=== PATIENT | female | born 1955 | race Caucasian/White ===

== ENCOUNTER → 2022-03-13 | Day surgery (SDC) | payer BC | END | disposition home or self-care (01) | LOC: FMAMMOTONE 12:28 | PROVIDERS: ATTEND Surgery | PROC: 0HBT3ZX Excision of Right Breast, Percutaneous Approach, Diagnostic (ICD-10-PCS; principal; 2022-03-13) | DX: N60.11 Diffuse cystic mastopathy of right breast (principal); N60.21 Fibroadenosis of right breast; N60.31 Fibrosclerosis of right breast; N64.89 Other specified disorders of breast; R92.1 Mammographic calcification found on diagnostic imaging of breast | CPT/HCPCS: 19081; 76098-TC-FY; 88305-TC ==

== ENCOUNTER 2024-04-12 08:15 | Day surgery (SDC) | payer OTHER ==
[2024-04-11 10:18] VITALS: BMI 25.2
[2024-04-12] MEDS ORDERED: DEXAMETHASONE SOD PHOSPHATE 4 MG/1 ML VIAL ONE (09:38)
[2024-04-12] MEDS ORDERED: PROPOFOL 20 ML ONE (09:38)
[2024-04-12] MEDS ORDERED: ROCURONIUM BROMIDE 50 MG/5 ML SYRINGE ONE ×2 (09:38→14:10)
[2024-04-12] MEDS ORDERED: LIDOCAINE HCL 2% 100 MG/5 ML DISP.SYRIN ONE (09:38)
[2024-04-12] MEDS ORDERED: MIDAZOLAM HCL 2 MG/2 ML SINGLE DOSE VIAL ONE ×2 (09:38→13:07)
[2024-04-12] MEDS ORDERED: SUCCINYLCHOLINE CHLORIDE 200 MG/10 ML SYRINGE ONE ×2 (09:38→13:07)
[2024-04-12] MEDS ORDERED: ceFAZolin SODIUM 1 GM VIAL ONE (09:38)
[2024-04-12] MEDS ORDERED: ONDANSETRON 4 MG/2 ML VIAL ONE ×3 (09:38→20:15)
[2024-04-12] MEDS ORDERED: KETOROLAC TROMETHAMINE 30 MG/1 ML VIAL ONE (09:38)
[2024-04-12] MEDS ORDERED: ePHEDrine SULFATE 50 MG/1 ML AMPULE ONE (09:41)
[2024-04-12] MEDS ORDERED: oxyCODONE HCL 5 MG TABLET PO PRN ×2 (09:51→20:25)
[2024-04-12] MEDS ORDERED: ONDANSETRON 4 MG/2 ML VIAL IVPUSH PRN (09:51)
[2024-04-12] MEDS ORDERED: PROPOFOL 40 ML ONE (13:06)
[2024-04-12] MEDS ORDERED: LIDOCAINE HCL 1%, 10 MG/ML (20ML VIAL) ONE (13:14)
[2024-04-12] MEDS ORDERED: ISOSULFAN BLUE 50 MG/5 ML VIAL SQ ONE (13:14)
[2024-04-12] MEDS: ceFAZolin SODIUM 1 GM VIAL IVPB ONE (14:06)
[2024-04-12] MEDS: LIDOCAINE HCL 1%, 10 MG/ML (20ML VIAL) INF ONE (14:29)
[2024-04-12] MEDS: ONDANSETRON 4 MG/2 ML VIAL IVPUSH ONE (17:36)
[2024-04-12] MEDS ORDERED: ONDANSETRON 4 MG/2 ML VIAL IVPB PRN (19:53)
[2024-04-12] MEDS: PANTOPRAZOLE 20 MG TABLET PO ONE (21:50)
[2024-04-12 23:56] VITALS: RESP 18
[2024-04-13 06:52] VITALS: PULSE 69
[2024-04-13 07:56] VITALS: BP 98/59; TEMP 97.3
[2024-04-13] MEDS: LACTATED RINGERS SOLUTION 1,000 ML IV SCH (10:19)
[2024-04-13] MEDS: ACETAMINOPHEN 325 MG TABLET (FP) PO PRN (10:19)
== END 2024-04-13 13:39 | disposition home or self-care (01) ==
LOC: JASUSAT 08:15 → J6S 21:04 → JASUSAT 04-13 13:39
PROVIDERS: ATTEND Surgery
PROC: 07B80ZX Excision of Right Internal Mammary Lymphatic, Open Approach, Diagnostic (ICD-10-PCS; 2024-04-12)
PROC: 07B90ZX Excision of Left Internal Mammary Lymphatic, Open Approach, Diagnostic (ICD-10-PCS; 2024-04-12)
PROC: C71L1ZZ Planar Nuclear Medicine Imaging of Upper Chest Lymphatics using Technetium 99m (Tc-99m) (ICD-10-PCS; 2024-04-12)
PROC: 07B60ZX Excision of Left Axillary Lymphatic, Open Approach, Diagnostic (ICD-10-PCS; 2024-04-12)
PROC: 0HBV0ZZ Excision of Bilateral Breast, Open Approach (ICD-10-PCS; principal; 2024-04-12 09:00)
PROC: 07B60ZX Excision of Left Axillary Lymphatic, Open Approach, Diagnostic (ICD-10-PCS; 2024-04-12 09:00)
DX: C50.912 Malignant neoplasm of unspecified site of left female breast (principal); C50.911 Malignant neoplasm of unspecified site of right female breast; C77.3 Secondary and unspecified malignant neoplasm of axilla and upper limb lymph nodes
CPT/HCPCS: 19281; 19282; 76098-TC-FY; 78195-TC; 88305-TC; 88307-TC; 88341-TC; 88342-TC; 94760; A9541

== ENCOUNTER 2024-09-06 12:12 | Day surgery (SDC) | payer OTHER ==
[2024-09-06] MEDS: PALONOSETRON HCL 0.25 MG/5 ML VIAL IVPUSH ONE (14:07)
[2024-09-06] MEDS: DEXAMETHASONE SODIUM PHOSPHATE 10 MG in SODIUM CHLORIDE 50 ML IVPB ONE (14:10)
[2024-09-06] MEDS: DOCETAXEL 124 MG in SODIUM CHLORIDE 250 ML IVPB ONE (14:35)
[2024-09-06] MEDS: CYCLOPHOSPHAMIDE INJECTION 1,000 MG in SODIUM CHLORIDE 250 ML IVPB ONE (15:47)
[2024-09-06] MEDS: PORTA CATH FLUSH 10 ML IVPUSH PRN (16:30)
[2024-09-06 18:14] VITALS: RESP 20; TEMP 97.9
[2024-09-06 18:22] VITALS: BP 142/80; PULSE 100
== END 2024-09-06 16:30 | disposition home or self-care (01) ==
LOC: JONCCHEMO 12:12 → J7W 12:16 → JONCCHEMO 16:30
PROVIDERS: ATTEND Internal Medicine Hematology & Oncology
DX: Z51.11 Encounter for antineoplastic chemotherapy (principal); C50.411 Malignant neoplasm of upper-outer quadrant of right female breast; C50.412 Malignant neoplasm of upper-outer quadrant of left female breast; Z17.0 Estrogen receptor positive status [ER+]
CPT/HCPCS: 96375; 96413; 96417; J9074

== ENCOUNTER 2024-09-07 12:49 | Day surgery (SDC) | payer OTHER ==
[2024-09-07] MEDS: PEGFILGRASTIM-CBQV (UDENYCA) 6 MG/0.6 ML SYRINGE SQ ONE (13:16)
[2024-09-07 15:32] VITALS: BP 137/77; PULSE 58; RESP 18; TEMP 98.4
== END 2024-09-07 13:30 | disposition home or self-care (01) ==
LOC: JONCCHEMO 12:49 → J7W 12:49 → JONCCHEMO 13:30
PROVIDERS: ATTEND Internal Medicine Hematology & Oncology
PROC: 3E013GC Introduction of Other Therapeutic Substance into Subcutaneous Tissue, Percutaneous Approach (ICD-10-PCS; principal; 2024-09-07)
DX: C50.411 Malignant neoplasm of upper-outer quadrant of right female breast (principal); C50.412 Malignant neoplasm of upper-outer quadrant of left female breast; Z17.0 Estrogen receptor positive status [ER+]; Z76.89 Persons encountering health services in other specified circumstances
CPT/HCPCS: 96372; Q5111

== ENCOUNTER 2024-09-29 11:00 | Day surgery (SDC) | payer OTHER ==
[2024-09-29 11:25] LABS: HEMATOCRIT 37.6 % (32.4-45.2); HEMOGLOBIN 12.1 GM/dL (10.7-15.3); MCH 26.7 pg (25.7-33.7); MCHC 32.3 g/dl (32.0-36.0); MEAN CELL VOLUME 82.6 fl (80-96); MEAN PLT VOLUME 7.1 fl (7.5-11.1); PLATELET COUNT 383 10^3/uL (134-434); RBC 4.55 M/mm3 (3.60-5.2); RDW 16.8 % (11.6-15.6); WHITE BLOOD COUNT 10.2 K/mm3 (4.0-10.0)
[2024-09-29 12:04] LABS: CHLORIDE 108 mmol/L (98-107); POTASSIUM 4.4 mmol/L (3.5-5.1); SODIUM 139 mmol/L (136-145)
[2024-09-29 12:08] LABS: ALBUMIN 3.4 g/dl (3.4-5.0); ANION GAP 5 mmol/L (4-13); BLOOD UREA NITROGEN 20.9 mg/dL (7-18); CALCIUM 10.2 mg/dL (8.5-10.1); CO2 25 mmol/L (21-32); GLUCOSE,RANDOM 78 mg/dL (74-106)
[2024-09-29 12:10] LABS: BILIRUBIN,DIRECT 0.1 mg/dL (0.0-0.2); CREATININE 0.5 mg/dL (0.55-1.3); SGOT/AST 17 U/L (15-37); SGPT/ALT 16 U/L (13-61)
[2024-09-29 12:12] LABS: ANISOCYTOSIS 0; BILIRUBIN,TOTAL 0.2 mg/dL (0.2-1); MACROCYTOSIS 0; TOT PROT 7.2 g/dl (6.4-8.2)
[2024-09-29 12:13] LABS: ALK PHOS 111 U/L (45-117)
[2024-09-29] MEDS: PALONOSETRON HCL 0.25 MG/5 ML VIAL IVPUSH ONE (12:38)
[2024-09-29] MEDS: DEXAMETHASONE SODIUM PHOSPHATE 10 MG in SODIUM CHLORIDE 50 ML IVPB ONE (12:38)
[2024-09-29] MEDS: DOCETAXEL 124 MG in SODIUM CHLORIDE 250 ML IVPB ONE (13:04)
[2024-09-29] MEDS: CYCLOPHOSPHAMIDE INJECTION 1,000 MG in SODIUM CHLORIDE 250 ML IVPB ONE (14:12)
[2024-09-29] MEDS: PORTA CATH FLUSH 10 ML IVPUSH PRN (14:55)
[2024-09-29 18:18] VITALS: BP 124/67; PULSE 78; RESP 18; TEMP 97.9
== END 2024-09-29 15:10 | disposition home or self-care (01) ==
LOC: JONCCHEMO 11:00 → J7W 11:01 → JONCCHEMO 15:10
PROVIDERS: ATTEND Internal Medicine Hematology & Oncology
DX: Z51.11 Encounter for antineoplastic chemotherapy (principal); C50.411 Malignant neoplasm of upper-outer quadrant of right female breast; C50.412 Malignant neoplasm of upper-outer quadrant of left female breast; Z17.0 Estrogen receptor positive status [ER+]
CPT/HCPCS: 36415; 80048; 80076; 85025; 96367; 96413; 96417; J9074

== ENCOUNTER 2024-09-30 11:47 | Day surgery (SDC) | payer OTHER ==
[2024-09-30] MEDS: PEGFILGRASTIM-CBQV (UDENYCA) 6 MG/0.6 ML SYRINGE SQ ONE (11:46)
[2024-09-30 14:37] VITALS: BP 139/74; PULSE 68; RESP 20; TEMP 97.9
== END 2024-09-30 12:00 | disposition home or self-care (01) ==
LOC: J7W 11:47 → JONCCHEMO 11:47
PROVIDERS: ATTEND Internal Medicine Hematology & Oncology
PROC: 3E013GC Introduction of Other Therapeutic Substance into Subcutaneous Tissue, Percutaneous Approach (ICD-10-PCS; principal; 2024-09-30)
DX: C50.919 Malignant neoplasm of unspecified site of unspecified female breast (principal); Z76.89 Persons encountering health services in other specified circumstances
CPT/HCPCS: 96372; Q5111

== ENCOUNTER 2024-10-20 09:11 | Day surgery (SDC) | payer OTHER ==
[2024-10-20 09:56] LABS: BASO % 0.3 % (0-2.0); HEMATOCRIT 36.9 % (32.4-45.2); HEMOGLOBIN 12.3 GM/dL (10.7-15.3); LYMPH % 4.5 % (8-40); MCH 27.7 pg (25.7-33.7); MCHC 33.4 g/dl (32.0-36.0); MEAN CELL VOLUME 82.9 fl (80-96); MEAN PLT VOLUME 7.3 fl (7.5-11.1); MONO % 4.9 % (3.8-10.2); NEUT % 90.3 % (42.8-82.8); PLATELET COUNT 395 10^3/uL (134-434); RBC 4.45 M/mm3 (3.60-5.2); RDW 16.6 % (11.6-15.6); WHITE BLOOD COUNT 9.1 K/mm3 (4.0-10.0)
[2024-10-20 10:30] LABS: CHLORIDE 108 mmol/L (98-107); POTASSIUM 4.7 mmol/L (3.5-5.1); SODIUM 140 mmol/L (136-145)
[2024-10-20 10:33] LABS: ALBUMIN 3.7 g/dl (3.4-5.0); ANION GAP 8 mmol/L (4-13); BLOOD UREA NITROGEN 22.8 mg/dL (7-18); CO2 24 mmol/L (21-32); GLUCOSE,RANDOM 100 mg/dL (74-106)
[2024-10-20 10:35] LABS: BILIRUBIN,DIRECT 0.1 mg/dL (0.0-0.2)
[2024-10-20 10:36] LABS: CREATININE 0.6 mg/dL (0.55-1.3); SGOT/AST 17 U/L (15-37); SGPT/ALT 17 U/L (13-61)
[2024-10-20 10:37] LABS: BILIRUBIN,TOTAL 0.4 mg/dL (0.2-1); TOT PROT 7.5 g/dl (6.4-8.2)
[2024-10-20 10:39] LABS: ALK PHOS 114 U/L (45-117)
[2024-10-20] MEDS: DEXAMETHASONE SODIUM PHOSPHATE 10 MG in SODIUM CHLORIDE 50 ML IVPB ONE (11:12)
[2024-10-20] MEDS: PALONOSETRON HCL 0.25 MG/5 ML VIAL IVPUSH ONE (11:12)
[2024-10-20] MEDS: DOCETAXEL 120 MG in SODIUM CHLORIDE 250 ML IVPB ONE (11:53)
[2024-10-20] MEDS: PORTA CATH FLUSH 10 ML IVPUSH PRN (13:10)
[2024-10-20] MEDS: CYCLOPHOSPHAMIDE IVPB ONE (13:15)
[2024-10-20] MEDS: SODIUM CHLORIDE IVPB ONE (13:15)
[2024-10-20 17:21] VITALS: BP 119/65; PULSE 91; RESP 20; TEMP 97.6
== END 2024-10-20 13:25 | disposition home or self-care (01) ==
LOC: JONCCHEMO 09:11 → J7W 09:27 → JONCCHEMO 13:25
PROVIDERS: ATTEND Internal Medicine Hematology & Oncology
DX: Z51.11 Encounter for antineoplastic chemotherapy (principal); C50.919 Malignant neoplasm of unspecified site of unspecified female breast
CPT/HCPCS: 36415; 80048; 80076; 85025; 96375; 96413; 96417; J9074

== ENCOUNTER 2024-11-10 08:48 | Day surgery (SDC) | payer OTHER ==
[2024-11-10 09:28] LABS: HEMATOCRIT 35.2 % (32.4-45.2); HEMOGLOBIN 11.6 GM/dL (10.7-15.3); MCH 27.3 pg (25.7-33.7); MCHC 32.9 g/dl (32.0-36.0); MEAN PLT VOLUME 6.9 fl (7.5-11.1); PLATELET COUNT 330 10^3/uL (134-434); RBC 4.24 M/mm3 (3.60-5.2); RDW 16.6 % (11.6-15.6); WHITE BLOOD COUNT 11.4 K/mm3 (4.0-10.0)
[2024-11-10 09:39] LABS: CHLORIDE 107 mmol/L (98-107); POTASSIUM 4.5 mmol/L (3.5-5.1); SODIUM 138 mmol/L (136-145)
[2024-11-10 09:41] LABS: CALCIUM 10.4 mg/dL (8.5-10.1)
[2024-11-10 09:42] LABS: ALBUMIN 3.5 g/dl (3.4-5.0); ANION GAP 7 mmol/L (4-13); BLOOD UREA NITROGEN 22.7 mg/dL (7-18); CO2 24 mmol/L (21-32); GLUCOSE,RANDOM 95 mg/dL (74-106)
[2024-11-10 09:44] LABS: BILIRUBIN,DIRECT 0.1 mg/dL (0.0-0.2); SGPT/ALT 12 U/L (13-61)
[2024-11-10 09:45] LABS: CREATININE 0.5 mg/dL (0.55-1.3); SGOT/AST 14 U/L (15-37)
[2024-11-10 09:46] LABS: BILIRUBIN,TOTAL 0.4 mg/dL (0.2-1)
[2024-11-10 09:47] LABS: ALK PHOS 99 U/L (45-117)
[2024-11-10] MEDS: PALONOSETRON HCL 0.25 MG/5 ML VIAL IVPUSH ONE (10:29)
[2024-11-10] MEDS: DEXAMETHASONE SODIUM PHOSPHATE 10 MG in SODIUM CHLORIDE 50 ML IVPB ONE (10:29)
[2024-11-10] MEDS: DOCETAXEL 128 MG in SODIUM CHLORIDE 250 ML IVPB ONE (10:59)
[2024-11-10] MEDS: CYCLOPHOSPHAMIDE INJECTION 1,040 MG in SODIUM CHLORIDE 250 ML IVPB ONE (12:07)
[2024-11-10 16:28] VITALS: BP 110/59; PULSE 83; RESP 20; TEMP 98.2
[2024-11-10] MEDS ORDERED: PORTA CATH FLUSH 10 ML IVPUSH PRN (16:28)
== END 2024-11-10 14:00 | disposition home or self-care (01) ==
LOC: JONCCHEMO 08:48
PROVIDERS: ATTEND Internal Medicine Hematology & Oncology
PROC: 3E04305 Introduction of Other Antineoplastic into Central Vein, Percutaneous Approach (ICD-10-PCS; principal; 2024-11-10)
PROC: 3E043GC Introduction of Other Therapeutic Substance into Central Vein, Percutaneous Approach (ICD-10-PCS; 2024-11-10)
DX: Z51.11 Encounter for antineoplastic chemotherapy (principal); C50.812 Malignant neoplasm of overlapping sites of left female breast; Z17.0 Estrogen receptor positive status [ER+]
CPT/HCPCS: 36415; 80048; 80076; 85025; 96365; 96367; 96413; 96415; J9074

== ENCOUNTER 2024-11-11 10:27 | Day surgery (SDC) | payer OTHER ==
[2024-11-11] MEDS: PEGFILGRASTIM-CBQV (UDENYCA) 6 MG/0.6 ML SYRINGE SQ ONE (10:43)
[2024-11-11 17:07] VITALS: BP 101/63; PULSE 80; RESP 20; TEMP 97.8
== END 2024-11-11 11:00 | disposition home or self-care (01) ==
LOC: JONCCHEMO 10:27 → J7W 10:28 → JONCCHEMO 11:00
PROVIDERS: ATTEND Internal Medicine Hematology & Oncology
PROC: 3E013GC Introduction of Other Therapeutic Substance into Subcutaneous Tissue, Percutaneous Approach (ICD-10-PCS; principal; 2024-11-11)
DX: C50.812 Malignant neoplasm of overlapping sites of left female breast (principal); Z17.0 Estrogen receptor positive status [ER+]; Z76.89 Persons encountering health services in other specified circumstances
CPT/HCPCS: 96372; Q5111